=== PATIENT | male | born 1985 | race Caucasian/White ===

== ENCOUNTER 2023-11-19 18:13 | Emergency (ER) | payer SELFPAY ==
[~2023-11-19] VITALS: Ht 167.6 cm; Wt 82.0 kg
[2023-11-19 18:18] VITALS: TEMP 97.6; O2SAT 98
[2023-11-19] MEDS ORDERED: CYCL10TA21 MT (18:25)
[2023-11-19] MEDS ORDERED: NAP5EC MT (18:25)
[2023-11-19] MEDS: CYCLOBENZAPRINE 10MG TABLET PO STA (18:43)
[2023-11-19 18:44] VITALS: BP 155/70; PULSE 102; RESP 14
[2023-11-19] MEDS: KETOROLAC 30MG/ML VIAL IM ONE (18:44)
== END 2023-11-19 19:21 | disposition home or self-care (01) ==
LOC: ER 18:13
DX: S16.1XXA Strain of muscle, fascia and tendon at neck level, initial encounter (principal); S39.012A Strain of muscle, fascia and tendon of lower back, initial encounter; V49.49XA Driver injured in collision with other motor vehicles in traffic accident, initial encounter; Y93.89 Activity, other specified; Y92.89 Other specified places as the place of occurrence of the external cause; Y99.8 Other external cause status
CPT/HCPCS: 99283; 96372; J1885